=== PATIENT | male | born 1975 | race Caucasian/White ===

== ENCOUNTER 2017-05-27 00:51 | Observation (INO) | payer MEDICAID ==
[2017-05-27] VITALS (8 sets, daily range): BP systolic 120–142; BP diastolic 62–96; PULSE 64–86; RESP 16–20; TEMP 96.6–98.2; O2SAT 95–97
[~2017-05-27] VITALS: Ht 175.3 cm; Wt 74.2 kg
[~2017-05-27 00:51] MED LIST: BACT800T5 PO; IBUP-238 PO
[2017-05-27] MEDS ORDERED: ASPI81TA81 PO (01:24)
[2017-05-27] MEDS ORDERED: PRIL20TA2 PO ×2 (01:24→11:41)
[2017-05-27] MEDS ORDERED: MORPHINE SULFATE 2 MG/ML INJ IV PUSH ONE (01:45)
[2017-05-27] MEDS ORDERED: ONDANSETRON HCL 4 MG/2 ML VIAL IV PUSH ONE (01:45)
[2017-05-27] MEDS ORDERED: ASPIRIN 81 MG CHEW TAB PO ONE (01:45)
[2017-05-27] MEDS ORDERED: SODIUM CHLORIDE 0.9% FLUSH 10 ML FLUSH IVF PRN (01:45)
--- NOTE | 2017-05-27 01:57 | PD ---
HPI . Chest pain Chief Complaint: Chest Pain Time Seen by Provider: 01:27 Travel History International Travel<30 days: No Contact w/Intl Traveler<30days: No Traveled to known affect area: No History of Present Illness HPI Patient presents with chest pain and dizziness for months. He states that the symptoms come and go. His chest pain is associated with shortness of breath. Pain is improved with drinking beer. He is also complaining with some left mid back pain. Intensity is 7/10. PFSH Past Medical History Bipolar Disorder: Yes (PT DENIES: 05/27/17) Anxiety: Yes Diabetes: No Diminished Hearing: No Immunizations Current: No Influenza Vaccination: No Past Surgical History Tonsillectomy: Yes (AGE 3) Social History Alcohol Use: Yes (12 PACK DAILY) Tobacco Use: Yes (1 PPD) Substance Use: Yes (THC OCCASIONALLY) Allergies-Medications (Allergen,Severity, Reaction): Coded Allergies: No Known Allergies (Verified Adverse Reaction, Unknown, 05/27/17) Reported Meds & Prescriptions Reported Meds & Active Scripts Active Reported Aspir-81 (Aspirin) 81 Mg Tabdr 81 Mg PO DAILY Prilosec (Omeprazole Magnesium) 20 Mg Tab 20 Mg PO DAILY Review of Systems Except as stated in HPI: all other systems reviewed are Neg HENT: Positive: Lightheadedness Cardiovascular: Positive: Chest Pain or Discomfort Respiratory: Positive: Shortness of Breath Musculoskeletal: Positive: Pain (left mid back pain) Physical Exam Narrative GENERAL: Awake and alert and in no acute distress. SKIN: warm/dry. Normal color and turgor. HEAD: Normocephalic. Atraumatic. EYES: Pupils equal and round. No scleral icterus. No injection or drainage. Eyes are bloodshot. ENT: No nasal bleeding or discharge. Mucous membranes pink and moist. NECK: Trachea midline. Full range of motion without pain.. CARDIOVASCULAR: Regular rate and rhythm. Heart sounds are normal. RESPIRATORY: No accessory muscle use. Clear to auscultation. Breath sounds equal bilaterally. No chest wall tenderness. GASTROINTESTINAL: Abdomen soft. Nontender. Bowel sounds present. Nondistended. MUSCULOSKELETAL: No obvious deformities. NEUROLOGICAL: Awake and alert. No obvious cranial nerve deficits. Motor grossly within normal limits. Normal speech. PSYCHIATRIC: Appropriate mood and affect; insight and judgment normal. Data Data Last Documented VS Vital Signs Date Time Temp Pulse Resp B/P (MAP) Pulse Ox O2 Delivery O2 Flow Rate FiO2 05/27/17 02:13 77 16 127/77 (94) 95 Room Air 05/27/17 00:58 98.2 Orders Orders Basic Metabolic Panel (Bmp) (05/27/17 01:33) Complete Blood Count With Diff (05/27/17 01:33) Magnesium (Mg) (05/27/17 01:33) Prothrombin Time / Inr (Pt) (05/27/17 01:33) Act Partial Throm Time (Ptt) (05/27/17 01:33) Troponin I (05/27/17 01:33) Chest, Single Ap (05/27/17 01:33) Ecg Monitoring (05/27/17 01:33) Iv Access Insert/Monitor (05/27/17 01:33) Oximetry (05/27/17 01:33) Aspirin Chew (Aspirin Chew) (05/27/17 01:45) Sodium Chloride 0.9% Flush (Ns Flush) (05/27/17 01:45) Drug Screen, Random Urine (05/27/17 01:33) Alcohol (Ethanol) (05/27/17 01:33) Morphine Inj (Morphine Inj) (05/27/17 01:45) Ondansetron Inj (Zofran Inj) (05/27/17 01:45) Lipase (05/27/17 01:33) Place In Observation (05/27/17 02:50) Activity Bed Rest With Brp (05/27/17 02:50) Vital Signs (Adult) Q4H (05/27/17 02:50) Cardiac Rhythm .As Directed (05/27/17 02:50) Notify Dr: Other .PRN (05/27/17 02:50) Notify Dr. Parameters (05/27/17 02:50) Resp Oxygen Nasal Cannula (05/27/17 ) Diet Npo (05/27/17 Breakfast) Ckmb (Isoenzyme) Profile (05/27/17 07:00) Ckmb (Isoenzyme) Profile (05/27/17 10:00) Troponin I (05/27/17 07:00) Troponin I (05/27/17 10:00) Electrocardiogram (05/27/17 07:00) Electrocardiogram (05/27/17 10:00) ^ Obtain (05/27/17 02:50) Sodium Chlor 0.9% 1000 Ml Inj (Ns 1000 M (05/27/17 02:50) Sodium Chloride 0.9% Flush (Ns Flush) (05/27/17 03:00) Sodium Chloride 0.9% Flush (Ns Flush) (05/27/17 09:00) Acetaminophen (Tylenol) (05/27/17 03:00) Morphine Inj (Morphine Inj) (05/27/17 03:00) Ondansetron Inj (Zofran Inj) (05/27/17 03:00) Nuclear Chemistry Technician / Telemetry [id number] (05/27/17 02:50) Labs Laboratory Tests Test 05/27/17 01:15 05/27/17 01:30 White Blood Count 4.9 TH/MM3 Red Blood Count 5.05 MIL/MM3 Hemoglobin 15.1 GM/DL Hematocrit 46.3 % Mean Corpuscular Volume 91.6 FL Mean Corpuscular Hemoglobin 30.0 PG Mean Corpuscular Hemoglobin Concent 32.7 % Red Cell Distribution Width 12.2 % Platelet Count 225 TH/MM3 Mean Platelet Volume 8.6 FL Neutrophils (%) (Auto) 41.2 % Lymphocytes (%) (Auto) 46.7 % Monocytes (%) (Auto) 8.9 % Eosinophils (%) (Auto) 2.4 % Basophils (%) (Auto) 0.8 % Neutrophils # (Auto) 2.0 TH/MM3 Lymphocytes # (Auto) 2.4 TH/MM3 Monocytes # (Auto) 0.4 TH/MM3 Eosinophils # (Auto) 0.1 TH/MM3 Basophils # (Auto) 0.0 TH/MM3 CBC Comment DIFF FINAL Differential Comment Prothrombin Time 9.8 SEC Prothromb Time International Ratio 1.0 RATIO Activated Partial Thromboplast Time 25.7 SEC Blood Urea Nitrogen 9 MG/DL Creatinine 0.85 MG/DL Random Glucose 95 MG/DL Calcium Level 8.2 MG/DL Magnesium Level 2.3 MG/DL Sodium Level 140 MEQ/L Potassium Level 3.8 MEQ/L Chloride Level 109 MEQ/L Carbon Dioxide Level 24.2 MEQ/L Anion Gap 7 MEQ/L Estimat Glomerular Filtration Rate 99 ML/MIN Troponin I LESS THAN 0.02 NG/ML Lipase 401 U/L Ethyl Alcohol Level 253 MG/DL Urine Opiates Screen NEG Urine Barbiturates Screen NEG Urine Amphetamines Screen NEG Urine Benzodiazepines Screen NEG Urine Cocaine Screen NEG Urine Cannabinoids Screen NEG MDM Medical Decision Making Medical Screen Exam Complete: Yes Emergency Medical Condition: Yes Interpretation(s) EKG shows a normal sinus rhythm with no acute ischemic changes Differential Diagnosis Differential diagnosis of chest pain includes but is not limited to musculoskeletal pain, pulmonary embolism, acute coronary syndrome, pneumonia, pleurisy Narrative Course This patient presents with a chief complaint of intermittent chest pain for several months. His chest pain is associated with shortness of breath and dizziness. This chest pain is improved by drinking beer. He does use tobacco, alcohol and marijuana. He states he drinks a 12 pack per day. My plan will be to evaluate him for ACS. He has been treated in the emergency department aspirin and morphine. As his chest pain is intermittent and associated with dizziness and shortness of breath, he probably needs to be evaluated in the chest pain center. CBC & BMP Diagram 05/27/17 01:15 Calcium Level 8.2 L, Magnesium Level 2.3, Lipase 401 trop < 0.02 EtOH 253 Last Impressions Chest X-Ray 05/27/17 0133 Signed Impressions: Service Date/Time: Saturday, May 27, 2017 01:47 - CONCLUSION: The lungs are clear. Frank Estrella MD Patient is feeling better following morphine. He is agreeable to admission to the chest pain center for further evaluation. Physician Communication Physician Communication [place] Diagnosis Primary Impression: Chest pain Qualified Codes: R07.9 - Chest pain, unspecified Admitting Information Admitting Physician Requests: Observation Condition: Stable Kim Ang MD May 27, 2017 01:57
[2017-05-27 02:00] LABS: BASOPHIL % 0.8 % (0.0-2.0); EOSINOPHIL # 0.1 TH/MM3 (0-0.4); EOSINOPHIL % 2.4 % (0.0-4.0); HEMATOCRIT 46.3 % (39.0-51.0); HEMOGLOBIN 15.1 GM/DL (13.0-17.0); LYMPH % 46.7 % (9.0-44.0); LYMPHOCYTE # 2.4 TH/MM3 (1.0-4.8); MEAN CELL VOLUME 91.6 FL (80.0-100.0); MEAN CORPUSCULAR HGB CONC 32.7 % (32.0-36.0); MEAN PLATELET VOLUME 8.6 FL (7.0-11.0); MONO % 8.9 % (0.0-8.0); MONOCYTE # 0.4 TH/MM3 (0-0.9); NEUT % 41.2 % (16.0-70.0); PLATELET COUNT 225 TH/MM3 (150-450); RED BLOOD COUNT 5.05 MIL/MM3 (4.50-5.90); RED CELL DISTRIBUTION WIDTH 12.2 % (11.6-17.2); WHITE BLOOD COUNT 4.9 TH/MM3 (4.0-11.0)
[2017-05-27 02:05] LABS: CHLORIDE 109 MEQ/L (98-107); SODIUM (NA) 140 MEQ/L (136-145)
[2017-05-27 02:08] LABS: CALCIUM 8.2 MG/DL (8.5-10.1); GLUCOSE,RANDOM 95 MG/DL (74-106)
[2017-05-27 02:09] LABS: BICARBONATE 24.2 MEQ/L (21.0-32.0); BLOOD UREA NITROGEN 9 MG/DL (7-18); LIPASE 401 U/L (73-393); MAGNESIUM 2.3 MG/DL (1.5-2.5)
[2017-05-27 02:11] LABS: PROTHROMBIN TIME - PATIENT 9.8 SEC (9.8-11.6)
[2017-05-27 02:12] LABS: CREATININE 0.85 MG/DL (0.60-1.30); GLOMERULAR FILTRATION RATE 99 ML/MIN (>89)
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
[2017-05-27 02:17] LABS: TROPONIN I LESS THAN 0.02 NG/ML (0.02-0.05)
[2017-05-27] MEDS ORDERED: SODIUM CHLOR 0.9% 1000 ML INJ 1,000 ML IV SCH (02:50)
[2017-05-27] MEDS ORDERED: SODIUM CHLORIDE 0.9% FLUSH 10 ML FLUSH IV FLUSH PRN (03:00)
[2017-05-27] MEDS ORDERED: ACETAMINOPHEN 500 MG CPLT PO PRN (03:00)
[2017-05-27] MEDS ORDERED: ONDANSETRON HCL 4 MG/2 ML VIAL IV PUSH PRN (03:00)
[2017-05-27] MEDS: MORPHINE SULFATE 4 MG/ML INJ IV PUSH PRN ×2 (03:31→07:49)
[2017-05-27 04:39] LABS: TROPONIN I LESS THAN 0.02 NG/ML (0.02-0.05)
[2017-05-27 07:59] LABS: TROPONIN I LESS THAN 0.02 NG/ML (0.02-0.05)
[2017-05-27] MEDS ORDERED: ASPIRIN EC 81 MG TABEC PO SCH (09:00)
[2017-05-27] MEDS ORDERED: SODIUM CHLORIDE 0.9% FLUSH 10 ML FLUSH IV FLUSH SCH (09:00)
[2017-05-27] MEDS ORDERED: NICOTINE 21 MG/24 HR PATCH T-DERMAL SCH (09:00)
[2017-05-27] MEDS ORDERED: REMOVE OLD PATCH T-DERMAL SCH (09:00)
[2017-05-27] MEDS ORDERED: ALUMINUM/MAGNESIUM/SIMETH 30 ML CUP PO PRN (09:00)
--- NOTE | 2017-05-27 09:20 | HHI.HP ---
[facility] Service [place] [facility] Primary Care Physician No Primary Care Physician Admission Diagnosis Chest pain Diagnoses: Chief Complaint: Chest pain Travel History International Travel<30 Days: No Contact w/Intl Traveler <30 Da: No Traveled to Known Affected Are: No History of Present Illness Written by Kiki Segundo, acting as scribe for Dr. Chirinos on 05/27/17 at 09: 11. This is a 41-year-old male patient with no known medical history who presented to the ED with complaints of chest pain. Patient states that the chest pain occurs usually at rest and has been intermittent for the past month. He states that this chest pain is stabbing in nature, denies any radiation of pain, usually last fifteen minutes and then subsides on its own. Denies any known aggravating factors. Patient does admit to associated shortness of breath. Denies any associated nausea, vomiting or diaphoresis. He does state that it is "hard to catch his breath" when the pain occurs. Does admit to associated feelings of palpitations. Denies ever having stress test before. Does not follow with the primary care doctor. Denies any significant family medical history. Does admit to smoking one pack per day cigarettes since the age of [age]. Denies any recent illness including fever, chills, abdominal pain, nausea, vomiting, diarrhea, dysuria or hematozemia. Review of Systems Constitutional: DENIES: Fever Eyes: DENIES: Blurred vision, Diplopia Respiratory: COMPLAINS OF: Cough, DENIES: Sputum production, Shortness of breath Cardiovascular: COMPLAINS OF: Chest pain, Palpitations Gastrointestinal: DENIES: Abdominal pain, Black stools, Bloody stools, Constipation, Diarrhea, Nausea, Vomiting Integumentary: DENIES: Abnormal pigmentation Hematologic/lymphatic: DENIES: Bruising Immunologic/allergic: DENIES: Eczema Neurologic: DENIES: Abnormal gait Psychiatric: DENIES: Anxiety Except as stated in HPI: all other systems reviewed are Neg Past Family Social History Past Medical History Tobacco abuse Anxiety Alcohol abuse Past Surgical History Tonsillectomy Reported Medications Active Reported Aspir-81 (Aspirin) 81 Mg Tabdr 81 Mg PO DAILY Prilosec (Omeprazole Magnesium) 20 Mg Tab 20 Mg PO DAILY Allergies: Coded Allergies: No Known Allergies (Verified Adverse Reaction, Unknown, 05/27/17) Active Ordered Medications Current Medications Medications (Trade) Dose Ordered Sig/Hui Route Start Time Stop Time Status Last Admin Sodium Chloride 1,000 ml @ 100 mls/hr Q10H IV 05/27/17 02:50 05/27/17 03:33 (NS Flush) 2 ml UNSCH PRN IV FLUSH 05/27/17 03:00 (NS Flush) 2 ml BID IV FLUSH 05/27/17 09:00 (Tylenol) 500 mg Q4H PRN PO 05/27/17 03:00 (Morphine Inj) 2 mg Q4H PRN IV PUSH 05/27/17 03:00 05/27/17 07:49 (Zofran Inj) 4 mg Q6H PRN IV PUSH 05/27/17 03:00 (Ecotrin Ec) 81 mg DAILY PO 05/27/17 09:00 UNV (Mag-Al Plus Susp Liq) 30 ml Q6H PRN PO 05/27/17 09:00 UNV Family History Denies any significant family medical history. Social History Admits to smoking one pack per day since the age of [age]. Admits to drinking four beers daily since the age of [age]. Admits to occasional marijuana use. Physical Exam Vital Signs Vital Signs Date Time Temp Pulse Resp B/P (MAP) Pulse Ox O2 Delivery O2 Flow Rate FiO2 05/27/17 08:00 95 21 05/27/17 07:54 18 05/27/17 06:00 96.9 67 17 120/73 (89) 96 05/27/17 04:53 96 21 05/27/17 04:30 05/27/17 02:13 77 16 127/77 (94) 95 Room Air 05/27/17 01:32 77 Room Air 05/27/17 01:14 82 20 142/96 (111) 96 05/27/17 00:58 98.2 86 20 139/81 (100) 97 Physical Exam GENERAL: Well-nourished, well-developed patient in NAD. SKIN: Warm and dry. No rash. HEAD: Normocephalic. Atraumatic. EYES: Pupils equal and round. No scleral icterus. No injection or drainage. ENT: No nasal bleeding or discharge. Mucous membranes pink and moist. NECK: Supple. Trachea midline. CARDIOVASCULAR: Regular rate and rhythm. S1, S2 noted. No murmur appreciated. No reproducible chest pain RESPIRATORY: No accessory muscle use. Clear to auscultation. Breath sounds equal bilaterally. GASTROINTESTINAL: Abdomen soft, non-tender, nondistended. Normoactive bowel sounds x4. MUSCULOSKELETAL: No obvious deformities. Extremities without clubbing, cyanosis , or edema. NEUROLOGICAL: Awake and alert. No obvious cranial nerve deficits. Motor grossly within normal limits. 5/5 muscle strength in bilateral upper and lower extremities. Normal speech. PSYCHIATRIC: Appropriate mood and affect; insight and judgment normal. Laboratory Laboratory Tests Test 05/27/17 01:15 05/27/17 01:30 05/27/17 04:13 05/27/17 07:20 White Blood Count 4.9 Red Blood Count 5.05 Hemoglobin 15.1 Hematocrit 46.3 Mean Corpuscular Volume 91.6 Mean Corpuscular Hemoglobin 30.0 Mean Corpuscular Hemoglobin Concent 32.7 Red Cell Distribution Width 12.2 Platelet Count 225 Mean Platelet Volume 8.6 Neutrophils (%) (Auto) 41.2 Lymphocytes (%) (Auto) 46.7 Monocytes (%) (Auto) 8.9 Eosinophils (%) (Auto) 2.4 Basophils (%) (Auto) 0.8 Neutrophils # (Auto) 2.0 Lymphocytes # (Auto) 2.4 Monocytes # (Auto) 0.4 Eosinophils # (Auto) 0.1 Basophils # (Auto) 0.0 CBC Comment DIFF FINAL Differential Comment Prothrombin Time 9.8 Prothromb Time International Ratio 1.0 Activated Partial Thromboplast Time 25.7 Blood Urea Nitrogen 9 Creatinine 0.85 Random Glucose 95 Calcium Level 8.2 Magnesium Level 2.3 Sodium Level 140 Potassium Level 3.8 Chloride Level 109 Carbon Dioxide Level 24.2 Anion Gap 7 Estimat Glomerular Filtration Rate 99 Troponin I LESS THAN 0.02 LESS THAN 0.02 LESS THAN 0.02 Lipase 401 Ethyl Alcohol Level 253 Urine Opiates Screen NEG Urine Barbiturates Screen NEG Urine Amphetamines Screen NEG Urine Benzodiazepines Screen NEG Urine Cocaine Screen NEG Urine Cannabinoids Screen NEG Total Creatine Kinase 93 94 Result Diagram: 05/27/17 0115 05/27/17 0115 Imaging Last Impressions Chest X-Ray 05/27/17 0133 Signed Impressions: Service Date/Time: Saturday, May 27, 2017 01:47 - CONCLUSION: The lungs are clear. Frank Estrella MD Septic Shock Reassessment Septic shock perfusion: reassessment completed Caprini VTE Risk Assessment Caprini VTE Risk Assessment: No/Low Risk (score <= 1) Caprini Risk Assessment Model Point Value = 1 Point Value = 2 Point Value = 3 Point Value = 5 Age 41-60 Minor surgery BMI > 25 kg/m2 Swollen legs Varicose veins or History of unexplained or recurrent spontaneous Oral contraceptives or hormone replacement Sepsis (< 1 month) Serious lung disease, including pneumonia (< 1 month) Abnormal pulmonary function Acute myocardial infarction Congestive heart failure (< 1 month) History of inflammatory bowel disease Medical patient at bed rest Age 61-74 Arthroscopic surgery Major open surgery (> 45 min) Laparoscopic surgery (> 45 min) Malignancy Confined to bed (> 72 hours) Immobilizing plaster cast Central venous access Age >= 75 History of VTE Family history of VTE Factor V Leiden Prothrombin [id number] Lupus anticoagulant Anticardiolipin antibodies Elevated serum homocysteine Heparin-induced thrombocytopenia Other congenital or acquired thrombophilia Stroke (< 1 month) Elective arthroplasty Hip, pelvis, or leg fracture Acute spinal cord injury (< 1 month) Prophylaxis Regimen Total Risk Factor Score Risk Level Prophylaxis Regimen 0-1 Low Early ambulation 2 Moderate Order ONE of the following: *Sequential Compression Device (SCD) *Heparin 5000 units SQ BID 3-4 Higher Order ONE of the following medications: *Heparin 5000 units SQ TID *Enoxaparin/Lovenox 40 mg SQ daily (WT < 150 kg, CrCl > 30 mL/min) *Enoxaparin/Lovenox 30 mg SQ daily (WT < 150 kg, CrCl > 10-29 mL/min) *Enoxaparin/Lovenox 30 mg SQ BID (WT < 150 kg, CrCl > 30 mL/min) AND/OR *Sequential Compression Device (SCD) 5 or more Highest Order ONE of the following medications: *Heparin 5000 units SQ TID (Preferred with Epidurals) *Enoxaparin/Lovenox 40 mg SQ daily (WT < 150 kg, CrCl > 30 mL/min) *Enoxaparin/Lovenox 30 mg SQ daily (WT < 150 kg, CrCl > 10-29 mL/min) *Enoxaparin/Lovenox 30 mg SQ BID (WT < 150 kg, CrCl > 30 mL/min) AND *Sequential Compression Device (SCD) Assessment and Plan Problem List: (1) Chest pain ICD Code: R07.9 - Chest pain, unspecified Status: Acute Plan: Patient has been admitted to the chest pain center. Serial EKGs and serial troponins have been ordered for ruling out ACS purposes. Serial troponins flat. EKG reviewed showing sinus rhythm heart rate control, no ST changes to indicate ischemia. CBC and BMP reviewed essentially unremarkable. Chest x-ray negative for any cardiopulmonary disease. Aspirin given an EGD. Continue daily aspirin. Pain control, morphine IV available when necessary as needed. Continue IV fluids. Pain is likely due to some form of gastritis, patient is a chronic alcoholic. Maalox and Prilosec ordered. Lipase level mildly elevated, 401. Echocardiogram ordered. Pending, follow. Lipid panel ordered, follow. Patient will undergo a cardiac treadmill stress test to rule out any further ischemia. Further hospitalization and treatment plan will depend on treadmill results. Continue to follow. Supportive care. Patient is stable and agreeable to the plan. (2) Tobacco abuse ICD Code: Z72.0 - Tobacco use Plan: Patient counseled on cessation. Nicotine patch ordered. (3) Alcohol abuse ICD Code: F10.10 - Alcohol abuse, uncomplicated Plan: Counseled on cessation. Assessment and Plan This note was transcribed by shahriar []. I, Dr. Abhi Jean personally performed the history, physical exam, and medical decision making; and confirmed the accuracy of the information in the transcribed note. Authenticated by Dr. Abhi Jean on 05/27/17 at 1025. Problem Qualifiers (1) Chest pain: Qualified Codes: R07.9 - Chest pain, unspecified SanyaKiki GIGI May 27, 2017 09:20 Abhi Hagan MD May 27, 2017 14:11
[2017-05-27] MEDS ORDERED: CARA1TAB6 PO (11:41)
--- NOTE | 2017-05-27 11:41 | HHI.DCPOC ---
Discharge Care Plan Diagnosis: (1) Chest pain (2) Tobacco abuse (3) Alcohol abuse Goals to Promote Your Health * To prevent worsening of your condition and complications * To maintain your health at the optimal level Discharge patient to home Condition on discharge: Improved Regular Diet as tolerated Ad Patrica activity Rx written: see above Follow-up with primary care physician and GI Advised to quit smoking, and to quit alcohol. Directions to Meet Your Goals Take your medications as prescribed Follow your dietary instruction Follow activity as directed Keep your appointments as scheduled Take your immunizations and boosters as scheduled If your symptoms worsen call your PCP, if no PCP go to Urgent Care Center or Emergency Room Smoking is Dangerous to Your Health. Avoid second hand smoke Call the 24-hour hour crisis hotline for domestic abuse at Kiki Segundo May 27, 2017 11:41
--- NOTE | 2017-05-27 11:47 | TR ---
Date Performed: 05/27/2017 Time Performed: 09:27:18 DOCTOR: Javier Guthrie DRUG LIST: CLINICAL HISTORY: CHEST PAIN REASON FOR TEST: Chest pain REASON FOR ENDING: OBSERVATION: CONCLUSION: Naun protocol completed. Test stopped 2/2 reaching target heart rate. Excellent exe rcise tolerance. Good BP response. No reproducible chest discomfort. No ST changes. Recovery quick an d unremarkable.Maximum CF=933 Target HR Czcjumir=739.0% Maximum RQ=107/90 COMMENTS:
--- NOTE | 2017-05-27 11:56 | EKG ---
Date Performed: 05/27/2017 Time Performed: 08:20:43 PTAGE: 41 years EKG: Sinus rhythm NORMAL ECG PREVIOUS TRACING : 05/27/2017 04.26 Since the prior tracing, there has been no significant jennings ge DOCTOR: Shabnam Carl Interpretating Date/Time 05/27/2017 11:54:11
--- NOTE | 2017-05-27 12:03 | EKG ---
Date Performed: 05/27/2017 Time Performed: 04:26:02 PTAGE: 41 years EKG: Sinus rhythm NORMAL ECG PREVIOUS TRACING : 05/27/2017 01.02 Since the prior tracing, there has been no significant jennings ge DOCTOR: Shabnam Carl Interpretating Date/Time 05/27/2017 12:01:00
--- NOTE | 2017-05-27 12:07 | EKG ---
Date Performed: 05/27/2017 Time Performed: 01:02:20 PTAGE: 41 years EKG: Sinus rhythm NORMAL ECG PREVIOUS TRACING : 12/28/2008 11.42 Since the prior tracing, there has been no significant jennings hector DOCTOR: Shabnam Carl Interpretating Date/Time 05/27/2017 12:06:52
[2017-05-27 13:12] LABS: CHOLESTEROL/ HDL RATIO 3.03 RATIO; HDL CHOLESTEROL 45.8 MG/DL (40.0-60.0)
--- NOTE | 2017-05-27 15:29 | ECHRPT ---
Indication: SHORTNESS OF BREATH CONCLUSIONS Normal left ventricular size. Wall thickness is measured at the upper limits of normal. The left ventricular systolic function is hyperdynamic with an estimated ejection fraction in the ra nge of 65- 70%. Trace mitral valve regurgitation. There is trace tricuspid valve regurgitation. The estimated pulmonary arterial pressure is 30 mmHg. BP: 124 / 62 HR: Rhythm: Sinus MEASUREMENTS (Male / Female) Normal Values Technical Quality:Fair 2D ECHO LV Diastolic Diameter PLAX 5.0 cm 4.2 - 5.9 / 3.9 - 5.3 cm LV Systolic Diameter PLAX 3.4 cm IVS Diastolic Thickness 1.0 cm 0.6 - 1.0 / 0.6 - 0.9 cm LVPW Diastolic Thickness 1.0 cm 0.6 - 1.0 / 0.6 - 0.9 cm LV Relative Wall Thickness 0.4 RV Internal Dim ED PLAX 3.0 cm LVOT Diameter 2.0 cm Aortic Root Diameter 3.0 cm LA Systolic Diameter LX 3.2 cm 3.0 - 4.0 / 2.7 - 3.8 cm M-MODE AV Cusp Separation MM 2.2 cm DOPPLER AV Peak Velocity 120.0 cm/s AV Peak Gradient 5.8 mmHg AV Mean Gradient 3.0 mmHg AV Velocity Time Integral 24.7 cm LVOT Peak Velocity 111.0 cm/s LVOT Peak Gradient 4.9 mmHg LVOT Velocity Time Integral 20.1 cm AV Area Cont Eq vti 2.6 cm AV Area Cont Eq pk 2.9 cm Mitral E Point Velocity 77.5 cm/s Mitral A Point Velocity 55.8 cm/s Mitral E to A Ratio 1.4 LV E' Lateral Velocity 11.5 cm/s Mitral E to LV E' Lateral Ratio 6.7 LV E' Septal Velocity 10.5 cm/s Mitral E to LV E' Septal Ratio 7.4 TR Peak Velocity 223.0 cm/s TR Peak Gradient 19.9 mmHg Right Atrial Pressure 10.0 mmHg Pulmonary Artery Systolic Pressu 29.9 mmHg Right Ventricular Systolic Press 29.9 mmHg PV Peak Velocity 58.7 cm/s PV Peak Gradient 1.4 mmHg FINDINGS LEFT VENTRICLE Normal left ventricular size. Wall thickness is measured at the upper limits of normal. The left ventricular systolic function is hyperdynamic with an estimated ejection fraction in the ra nge of 65- 70%. RIGHT VENTRICLE Normal right ventricular size and systolic function. LEFT ATRIUM The left atrial size is normal. RIGHT ATRIUM The right atrial size is normal. ATRIAL SEPTUM No atrial level shunt is demonstrated by color flow Doppler interrogation. AORTA The aortic root and proximal ascending aorta are normal in size on limited imaging. MITRAL VALVE Trace mitral valve regurgitation. AORTIC VALVE Trileaflet aortic valve. No aortic valve stenosis or regurgitation. TRICUSPID VALVE There is trace tricuspid valve regurgitation. The estimated pulmonary arterial pressure is 29.9 mmHg. PULMONARY VALVE No pulmonary valve regurgitation or stenosis. VESSELS The inferior vena cava is normal in size. PERICARDIUM No pericardial effusion. Shabnam Carl MD, FACC (Electronically Signed) Final Date:27 May 2017 15:28
== END 2017-05-27 14:19 | disposition home or self-care (01) ==
LOC: PHED 00:51 → PHEDA 02:58 → PH3A 04:32
PROVIDERS: ADMIT Hospitalist; ATTEND Hospitalist
DX: R07.89 Other chest pain (principal); F10.10 Alcohol abuse, uncomplicated; R06.02 Shortness of breath; R00.2 Palpitations; F41.8 Other specified anxiety disorders; F17.200 Nicotine dependence, unspecified, uncomplicated; F12.90 Cannabis use, unspecified, uncomplicated
CPT/HCPCS: 71045; 80048; 80061; 80307; 82550; 83690; 83735; 84484; 85025; 85610; 85730; 93005; 93017; 93306; 96361; 96374; 96375; 96376; 99285; G0378; J2270; J2405; J7030